=== PATIENT | male | born 1980 | race Caucasian/White ===

== ENCOUNTER 2016-09-09 07:53 | Day surgery (SDC) ==
[2016-09-09 08:21] VITALS: BP 125/88; TEMP 98.4
[2016-09-09] MEDS ORDERED: LIDOCAINE 1% 20 ML MDV INJ ONE (09:07)
[2016-09-09] MEDS ORDERED: LIDOCAINE 1%-EPI 1:100,000 10 ML (SURGERY) INJ ONE (09:07)
[2016-09-09] MEDS ORDERED: NEOSPORIN OINT 0.9 GM PACKET TP ONE (09:34)
--- NOTE | 2016-09-16 13:33 | OP ---
DATE OF SERVICE: 09/09/16 SUBJECTIVE: The patient was seen at the office need referral because of Keloid formation or polypoid growth on the left upper lateral scapula surface. The growth had been enlarging and had encroached into the tattoo. The patient was advised this was excised and it will encroach on the tattoo. He realizes that it has to be done. I told him as well as his that there is a possibility that the keloid would reform and also possibility of infection. Further treatment will depending upon the results of the pathology. PRE-OPERATIVE DIAGNOSIS: Keloid left upper lateral scapula POST-OPERATIVE DIAGNOSIS: Same PROCEDURE: The patient in the right lateral decubitus position was then prepped and draped for surgery. The area was then anesthetized with 1% Xylocaine. The vertical elliptical incision was made. The initial incision and the upper medial end did run into small cystic area. Incision was then widened and carried into the subcutaneous tissue about 2-3mm in width. The dissection was carried sharply until it was completely removed. The bleeder were cauterized. The edges were then approximated with a 4-0 Vicryl interrupted and the skin with the 5-0 Prolene plus steri stripes. The patient tolerated the procedure well and was advised to see me in one week at the office or before if there is any signs of infection such as drainage, pain and tenderness. NITZA
== END 2016-09-09 10:05 | disposition home or self-care (01) ==
LOC: SURG 07:53
PROVIDERS: ATTEND General Practice
DX: L91.0 Hypertrophic scar (principal); L72.3 Sebaceous cyst
CPT/HCPCS: 11404